=== PATIENT | female | born 1955 | race Caucasian/White ===

== ENCOUNTER 2018-01-22 20:45 | Emergency (ER) | payer SELFPAY ==
[~2018-01-22] VITALS: Ht 157.5 cm; Wt 113.4 kg
[2018-01-22] MEDS ORDERED: KETOROLAC TROMETHAMINE 30 MG/ML VIAL IV STA (21:21)
[2018-01-22] MEDS ORDERED: KETOROLAC TROMETHAMINE 30 MG/ML VIAL ONE (21:22)
[2018-01-22] MEDS ORDERED: ONDANSETRON HCL 4 MG ORAL DISINTEGRATING TAB ONE (21:22)
[2018-01-22] MEDS ORDERED: ONDANSETRON HCL 4 MG ORAL DISINTEGRATING TAB PO ONE (21:30)
[2018-01-22 21:43] LABS: BASOPHILS # (AUTO) 0.1 (0.0-0.1); BASOPHILS % 0.7 % (0.0-1.0); EOSINOPHILS # (AUTO) 0.3 (0.0-0.4); EOSINOPHILS % 4.1 % (0.0-6.0); HEMATOCRIT 42.5 % (34.2-44.1); HEMOGLOBIN 14.8 g/dL (12.0-16.0); LYMPHOCYTES # (AUTO) 3.8 (1.0-3.2); LYMPHOCYTES % 47.2 % (18.0-39.1); MEAN CORPUSCULAR HEMOGLOBIN 29.6 pg (28-32); MEAN CORPUSCULAR HGB CONC 34.8 g/dL (31-35); MONOCYTES # (AUTO) 0.5 (0.2-0.8); MONOCYTES % 6.2 % (4.4-11.3); NEUTROPHILS # (AUTO) 3.3 (2.1-6.9); NEUTROPHILS % 41.6 % (38.7-80.0); PLATELET COUNT 211 x10e3/uL (140-360); RED CELL DISTRIBUTION WIDTH 12.1 % (11.7-14.4)
[2018-01-22 21:49] LABS: CLARITY,URINE SL CLOUDY (CLEAR); COLOR,URINE YELLOW (YELLOW); LEUKOCYTE ESTERASE ,URINE TRACE (NEGATIVE); NITRITE,URINE POSITIVE (NEGATIVE); PROTEIN,URINE DIPSTICK 1+ (NEGATIVE)
[2018-01-22 21:50] LABS: BILIRUBIN,URINE NEGATIVE (NEGATIVE); KETONES,URINE NEGATIVE (NEGATIVE); URINE UROBILINOGEN 0.2 mg/dL (0.2 - 1)
[2018-01-22 21:58] LABS: ALBUMIN 3.4 g/dL (3.5-5.0); ALBUMIN/GLOBULIN RATIO 0.7 (0.8-2.0); ANION GAP 15.1 mmol/L (8-16); CALCIUM 9.4 mg/dL (8.4-10.2); CREATININE, SERUM 1.16 mg/dL (0.57-1.11); POTASSIUM 4.1 mmol/L (3.5-5.1)
[2018-01-22] MEDS ORDERED: LORAZEPAM INJ 2 MG/ML VIAL IV ONE (22:00)
[2018-01-22 22:03] LABS: BACTERIA,URINE MANY /HPF; EPITHELIAL CELLS,URINE FEW /LPF; MUCUS,URINE FEW (RARE)
[2018-01-22 22:20] LABS: CREATINE KINASE MB 2.6 ng/mL (0-5.0)
--- NOTE | 2018-01-22 22:56 | Diagnostic Imaging Report ---
EXAMINATION: Head CT HISTORY: Headache. COMPARISON: None. TECHNIQUE: Multidetector axial images were obtained without contrast from the foramen magnum to the vertex . The images were reconstructed using brain and bone algorithms. Thin section brain images were reformatted into coronal and sagittal planes. Intravenous contrast: None. Motion/streaking artifact limits the evaluation of the skull base and posterior cranial fossa. FINDINGS: Parenchyma: 1. No abnormal densities. 2. No mass or hemorrhage. No CT evidence of acute territorial vascular insult. Extra-axial spaces:No abnormal density. No extra-axial fluid collections Brain volume: Normal for age. Ventricles: No hydrocephalus or displacement. Arteries: No density suggestive of thrombus. Dural sinuses: No abnormal density. Extra-axial spaces: No abnormal density. Foramen magnum: No mass, Chiari malformation, or basilar invagination. Sella: No obvious mass. Paranasal/mastoid sinuses: Imaged portions unremarkable. Skull/Scalp: No lytic or blastic lesions. No fractures. IMPRESSION: No intracranial abnormalities. Signed by: Dr. Kathryn Boyd M.D. on 01/22/2018 10:53 PM
--- NOTE | 2018-01-22 23:28 | Diagnostic Imaging Report ---
CHEST SINGLE (PORTABLE), 01/22/2018 9:59 PM Technique: CHEST SINGLE (PORTABLE) Comparison: None available. Clinical history: Shortness of breath Findings: Prominent cardiomediastinal silhouette, accentuated by technique. No consolidation, edema, pleural effusion or pneumothorax. Impression: 1. Lines/Tubes: None 2. No acute abnormality. Signed by: Dr Marcella Sales MD on 01/22/2018 11:25 PM
--- NOTE | 2018-01-22 23:36 | Diagnostic Imaging Report ---
EXAM: CT ABDOMEN/PELVIS WO DATE: 01/22/2018 9:17 PM INDICATION: \S\ORAL CONTRAST PLEASE, RIGHT ABDE PAIN \S\[id number] \S\[id number] \S\Y COMPARISON: None TECHNIQUE: The abdomen and pelvis were scanned using a multidetector helical scanner. Coronal and sagittal reformations were obtained. Routine protocol performed. IV Contrast: 0 ml Isovue 300/370 Oral contrast was administered. FINDINGS: Lack of IV contrast decreases sensitivity in evaluating abdominal and pelvic organs. LOWER THORAX: No consolidations LIVER/BILIARY: No masses on noncontrast evaluation GALLBLADDER: Unremarkable SPLEEN: Unremarkable PANCREAS, ADRENALS: No masses. Clips are seen in the region of the left adrenal and distal pancreas. KIDNEYS: Mild bilateral pelviectasis versus extrarenal pelvis. No stones. GI TRACT: No evidence of obstruction. Moderate stool burden. Scattered diverticula. Normal appendix. VESSELS: Moderate atherosclerotic calcification. PERITONEUM/RETROPERITONEUM: No free air or fluid LYMPH NODES: No lymphadenopathy REPRODUCTIVE ORGANS/BLADDER: Lobular appearance of the with calcifications likely related to underlying fibroids. BONES: Multilevel degenerative changes with posterior disc osteophyte and minimal retrolisthesis of L3 over L4.. IMPRESSION: No acute abnormality. Signed by: Dr Marcella Sales MD on 01/22/2018 11:32 PM
[2018-01-23] MEDS ORDERED: CEFTRIAXONE SOD 1 GM VIAL IV ONE (00:45)
== END 2018-01-23 01:47 | disposition home or self-care (01) ==
LOC: ER 20:45
CPT/HCPCS: 36415; 70450; 71045; 74176; 80053; 81001; 82150; 82550; 82553; 83690; 84484; 85025; 96374; 99284; J0696; J1885; J2060